=== PATIENT | male | born 1980 | race Caucasian/White ===

== ENCOUNTER → 2020-03-29 16:24 | Outpatient (CLI) | payer BC, SELFPAY ==
[2020-03-29 18:23] LABS: Coronavirus 19 IgG Antibody Negative (Negative); Coronavirus 19 IgM Antibody Negative (Negative)
[2020-03-31 08:56] LABS: Covid-19 Nasal PCR Sendout Lex NOT DETECTED
== END ==
PROVIDERS: PCP Nurse Practitioner Family; Visit Provider Nurse Practitioner Family
DX: Z20.828 Contact with and (suspected) exposure to other viral communicable diseases (principal)
CPT/HCPCS: 36415; 86328; U0004

== ENCOUNTER 2020-06-24 17:15 | Emergency (ER) | payer BC, SELFPAY ==
[2020-06-24 18:01] VITALS: BP 118/82; PULSE 81; RESP 19; TEMP 36.9; O2SAT 100; BMI 34.8
--- NOTE | 2020-06-24 18:11 | HMH.EDUTC ---
[facility] [place]ression: Viral illness Diarrhea Qualifiers: Diarrhea type: unspecified type Qualified Code(s): R19.7 - Diarrhea, unspecified Disposition: Home, Self-Care Condition on Discharge: Good Instructions: Preventing the Spread of Coronavirus Discharge Instructions, Diarrhea Additional Instructions: Monitor temperature. Seek treatment if fever develops. Follow-up immediately if new or worse symptoms worsen or no noticeable improvement over 48 hours. Increase fluids such as water, Gatorade, Powerade, juice or Pedialyte with limited formula/dietary in children No food is okay as long as you are drinking. Once ready to eat start bland such as bananas, rice, applesauce, toast. Contagious until no diarrhea, vomiting, fever times 48 hours without medication Avoid antidiarrheals unless told otherwise. Best to let the virus run its course. Follow-up immediately for new or worsening symptoms or no noticeable improvement over the next 48 hours. covid test done call in 4-5 hours for test results, self isolate until test results are neg Referrals: Mariam Espitia APRN [Primary Care Provider] - Time of Disposition: 18:21 Medical Decision Making - Jones Inquiry Pt receiving controlled substance: No Vital Signs: 06/24/20 18:01 Temperature 98.4 F Temperature Source Oral Pulse Rate [Right Brachial] 81 Respiratory Rate 19 Blood Pressure [Right Arm] 118/82 Blood Pressure Mean [Right Arm] 94 Blood Pressure Source [Right Arm] Automatic Cuff Blood Pressure Position [Right Arm] Sitting 02 Sat by Pulse Oximetry 100 Oxygen Delivery Method Room Air [facility] [place] - General Chief complaint: [facility] Stated complaint: headache sore throat diarrhea Time Seen by Provider: 06/24/20 18:12 Mode of Arrival: Ambulatory Source of Information: Patient Limitations: No Limitations Description of Symptoms (Recalled from Triage Doc. by RN): PATIENT C/O SORE THROAT AND DIARRHEA SINCE YESTERDAY HEENT Symptoms (Recalled from RN notes): No Resp Symptoms (Recalled from RN notes): No Skin Symptoms (Recalled from RN notes): No MS Symptoms (Recalled from RN notes): No Functional Status (Recalled from RN notes): WNL - History of Present Illness Provider Complaint: 39 yr old male presents for diarrhea, sore throat, headache and abd cramping for 2 days. 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 denies fever - Related Data Allergies Allergy/AdvReac Type Severity Reaction Status Date / Time No Known Allergies Allergy Verified 06/24/20 18:05 - Worker's Comp Is this a Worker's Comp case?: No [facility] History - Hepatitis A Screen Drug use history?: No High risk sexual behaviors?: No History of sexually transmitted infection?: No Currently employed?: No Childcare worker?: No Do you have indoor plumbing?: Yes Do you have electricity?: Yes Attestation statement:: This patient has been screened for Hepatitis A risk factors. I have reviewed the patient's past medical history: Yes - Social History Alcohol Intake: never Occupational Status: other ROS Obtained: Yes Systems reviewed as appropriate & no additional complaints - Constitutional Constitutional: Reports system reviewed and no additional complaints, except as docu, Denies fever(s) - Eyes Eyes: Reports system reviewed and no additional complaints, except as docu, Denies blurry vision - ENT Ears, Nose, Mouth, and Throat: Reports system reviewed and no additional complaints, except as docu, Denies otalgia, Denies nasal congestion, Reports sore throat - Cardiovascular Cardiovascular: Reports system reviewed and no additional complaints, except as docu, Denies chest pain - Respiratory Respiratory: Yes system reviewed and no additional complaints, except as docu, Yes cough - Gastrointestinal Gastrointestingal: Reports: system reviewed and no additional complaints, except as docu, diarrhea - Genitourinary Male Genitourinary: Reports system re
[2020-06-24 18:18] LABS: UTC Strep Screen (Rapid) Negative (Negative)
[2020-06-24 18:25] VITALS: BP 118/82; PULSE 81; RESP 19; TEMP 36.9; O2SAT 100
== END 2020-06-24 18:30 | disposition home or self-care (01) ==
PROVIDERS: Emergency Provider Nurse Practitioner Family; PCP Nurse Practitioner Family
DX: Z20.828 Contact with and (suspected) exposure to other viral communicable diseases (principal); B34.9 Viral infection, unspecified; J02.9 Acute pharyngitis, unspecified
CPT/HCPCS: 87880; 99202; U0003

== ENCOUNTER 2020-10-12 16:42 | Emergency (ER) | payer BC, SELFPAY ==
[2020-10-12 17:10] VITALS: BP 131/84; PULSE 77; RESP 18; TEMP 36.9; O2SAT 98; BMI 34.8
--- NOTE | 2020-10-12 17:23 | HMH.EDUTC ---
[facility] [place] Clinical Impression: Viral illness, Encounter for laboratory testing for COVID-19 virus Disposition: Home, Self-Care Condition on Discharge: Good Instructions: Sore Throat, DI for Cough -- Adult, DI for COVID-19 (Suspected or Confirmed ), Coronavirus Disease 2019, Preventing the Spread of Coronavirus Discharge Instructions Additional Instructions: *Monitor Temp, Over the counter Motrin or Tylenol as directed/as needed Tylenol every 4 hours and Motrin every 6 hours (as long as your family doctor has told you that you can take it) for fever or pain. and straight to ER if unable to lower temp less than 101.0 after medication given *Warm salt water gargles may help to soothe the throat *Throat Lozenges *Warm fluids like tea with honey may help to soothe the throat *Sleep elevated *Humidifier/Vaporizer Follow up IMMEDIATELY for new or worsening symptoms or no Noticeable improvement over the next 48-72 hours. 911 for difficulty breathing or swallowing You were tested for today for COVID19 your test result should be back in the next 24-48 hours, you may call to the [facility] to see if your test results are back in the next 48 hours [phone] [facility] hours are 9am-9pm You was given a handout with instructions for Self Quarantine and Self isolation for while you wait on test results and what to do if they are positive If you are positive the Health Dept will be contacting you also Referrals: Mariam Espitia APRN [Primary Care Provider] - As needed Forms: Work/School Release Time of Disposition: 17:39 Medical Decision Making - Jones Inquiry Pt receiving controlled substance: No Jones was queried for this patient: No Vital Signs: 10/12/20 17:10 Temperature 98.4 F Temperature Source Oral Pulse Rate [Right] 77 Respiratory Rate 18 Blood Pressure [Right Arm] 131/84 Blood Pressure Mean [Right Arm] 99 Blood Pressure Source [Right Arm] Automatic Cuff Blood Pressure Position [Right Arm] Sitting 02 Sat by Pulse Oximetry 98 Oxygen Delivery Method Room Air - Lab Data Lab results reviewed: Yes: I reviewed the patient's lab results. Lab Results 10/12/20 17:24: Strep Scn Rapid Clinic Negative Orders (Tests/Meds): ORDERS Category Date Time Status Covid-19 Nasal PCR ([facility]) Routine Lab 10/12/20 17:58 Received Strep Screen Confirmation Stat Micro 10/12/20 17:24 Received [facility] UTC HPI - General Stated complaint: covid test Time Seen by Provider: 10/12/20 17:23 Mode of Arrival: Ambulatory Source of Information: Patient Limitations: No Limitations Description of Symptoms (Recalled from Triage Doc. by RN): pt was indirectly exposed to covid two weeks ago. pt is not complaining of loss of taste and sore throat that started today. HEENT Symptoms (Recalled from RN notes): Yes (sore throat) Resp Symptoms (Recalled from RN notes): No Skin Symptoms (Recalled from RN notes): No MS Symptoms (Recalled from RN notes): No Functional Status (Recalled from RN notes): na - History of Present Illness Provider Complaint: Patient state that he was around someone that had been in contact with someone that was positive for COVID States that for the last couple of days he has been having runny nose and sore throat and now has loss his sense of taste and smell States that he is not sure if he has been directly exposed to COVID but wanted to get tested - Related Data Allergies Allergy/AdvReac Type Severity Reaction Status Date / Time No Known Allergies Allergy Verified 06/24/20 18:05 - Worker's Comp Is this a Worker's Comp case?: No [facility] History - Hepatitis A Screen Drug use history?: No High risk sexual behaviors?: No History of sexually transmitted infection?: No Currently employed?: No Childcare worker?: No Do you have indoor plumbing?: Yes Do you have electricity?: Yes Attestation statement:: This patient has been screened for Hepatitis A risk factors. I have reviewed the patient's past medical history
[2020-10-12 17:37] LABS: UTC Strep Screen (Rapid) Negative (Negative)
[2020-10-12 17:46] VITALS: BP 119/74; PULSE 65; RESP 16; TEMP 36.9
== END 2020-10-12 17:48 | disposition home or self-care (01) ==
PROVIDERS: Emergency Provider Nurse Practitioner; PCP Nurse Practitioner Family
DX: Z20.822 Contact with and (suspected) exposure to COVID-19 (principal); B34.9 Viral infection, unspecified
CPT/HCPCS: 87880; 99202; G0463; U0003

== ENCOUNTER 2022-03-01 12:05 | Emergency (ER) | payer BC, SELFPAY ==
[2022-03-01 12:23] VITALS: BP 111/81; PULSE 91; RESP 18; TEMP 36.8; O2SAT 96; BMI 36.6
--- NOTE | 2022-03-01 12:28 | HMH.EDUTC ---
[facility] [place] Disposition Clinical Impression: Allergic reaction Qualifiers: Encounter type: initial encounter Qualified Code(s): T78.40XA - Allergy, unspecified, initial encounter Contact dermatitis Qualifiers: Contact dermatitis type: allergic Contact dermatitis trigger: non-food plants Qualified Code(s): L23.7 - Allergic contact dermatitis due to plants, except food Disposition: Home, Self-Care Condition on Discharge: Good Instructions: Contact Dermatitis, DI for General Allergic Reactions, Methylprednisolone Injection Additional Instructions: Try to identify and avoid contact with the offending substance. Don't start the oral steroids until tomorrow. Follow up with your regular doctor. GO TO THE ER FOR ANY WORSENING SYMPTOMS OR CONCERNS Continue your regular allergy meds as you are taking them. Prescriptions: methylPREDNISolone [Medrol] 4 mg PO DIRECTED 6 Days #21 packet Transmission Status: Received by [id number] Referrals: Lisa Jaeger PA [Primary Care Provider] - Time of Disposition: 12:32 Medical Decision Making - Medical Records Medical records reviewed: No: I reviewed the patient's medical records. - Jones Inquiry Pt receiving controlled substance: No Vital Signs: 03/01/22 12:23 03/01/22 12:42 Temperature 98.2 F 98.2 F Temperature Source Oral Pulse Rate 91 H Pulse Rate [Left] 91 H Respiratory Rate 18 18 Blood Pressure 111/81 Blood Pressure [Right Arm] 111/81 Blood Pressure Mean [Right Arm] 91 02 Sat by Pulse Oximetry 96 [facility] [place] HPI - General Stated complaint: eye swelling Time Seen by Provider: 03/01/22 12:28 Description of Symptoms (Recalled from Triage Doc. by RN): patient comes in for allergic reaction to something in the yard. he was working in the yard and his eyes are red and swollen HEENT Symptoms (Recalled from RN notes): Yes Resp Symptoms (Recalled from RN notes): No Skin Symptoms (Recalled from RN notes): No MS Symptoms (Recalled from RN notes): No Functional Status (Recalled from RN notes): wnl - History of Present Illness Provider Complaint: He states that after he mowed his grass 3 days ago he began to have a itchy rash on his face. Since then he has had swelling of his face and around his eyes. He denies any mouth or throat swelling. He denies any chest pain or shortness of breath. He has had a similar reaction like this in the past after mowing his grass. He takes multiple allergy prescriptions and he takes allergy shots due to his environmental allergies. - Related Data Home Medications Medication Instructions Recorded Confirmed buspirone 5 mg tablet 5 mg PO BID 02/11/22 02/11/22 diphenhydramine HCl 25 mg capsule 25 mg PO BID cap 02/11/22 02/11/22 esomeprazole magnesium 20 mg 20 mg PO DAILY 02/11/22 02/11/22 capsule,delayed release fluticasone propionate 50 2 spray NS DAILY 02/11/22 02/11/22 mcg/actuation nasal spray,suspension levocetirizine 5 mg tablet 5 mg PO DAILY 02/11/22 02/11/22 montelukast 10 mg tablet 10 mg PO DAILY 02/11/22 02/11/22 multivitamin 1 tab PO DAILY 02/11/22 02/11/22 sumatriptan succinate 100 mg tablet 100 mg PO ONCE PRN tab 02/11/22 02/11/22 topiramate 25 mg tablet 25 mg PO DAILY 02/11/22 02/11/22 Previous Rx's Medication Instructions Recorded escitalopram oxalate 10 mg tablet 10 mg PO DAILY #90 tab 02/11/22 methylPREDNISolone [Medrol] 4 mg PO DIRECTED 6 Days #21 03/01/22 packet Allergies Allergy/AdvReac Type Severity Reaction Status Date / Time No Known Allergies Allergy Verified 03/01/22 12:25 - Worker's Comp Is this a Worker's Comp case?: No [facility] History - Hepatitis A Screen Attestation statement:: This patient has been screened for Hepatitis A risk factors. I have reviewed the patient's past medical history: Yes Medical History: Reports:: Anxiety Other Medical History: Reports: Other (migraines; ESVIN) Other Surgeries: Yes: Bariatric Surgery (gastric sleeve),
[2022-03-01 12:42] VITALS: BP 111/81; PULSE 91; RESP 18; TEMP 36.8
== END 2022-03-01 12:44 | disposition home or self-care (01) ==
PROVIDERS: Emergency Provider Nurse Practitioner Family; PCP Physician Assistant
DX: L23.7 Allergic contact dermatitis due to plants, except food
CPT/HCPCS: 99212; G0463

== ENCOUNTER 2023-09-06 10:23 | Emergency (ER) | payer BC, SELFPAY ==
[2023-09-06 11:05] VITALS: BP 146/85; PULSE 82; RESP 20; TEMP 37.1; O2SAT 98; BMI 37.3
--- NOTE | 2023-09-06 11:19 | EXP.UTC ---
Discharge Plan Disposition Patient Disposition: Home, Self-Care Condition: Good Prescriptions Prescriptions: New penicillin V potassium 500 mg tablet 500 mg PO BID Qty: 20 0RF methylprednisolone [Medrol (Brennan)] 4 mg tablets,dose pack See Rx Instructions .Route .COMPLEX 6 Days Qty: 21 0RF Rx Instructions: taper pack; No Action buspirone 5 mg tablet 5 mg PO DAILY montelukast 10 mg tablet 10 mg PO DAILY Patient Comments: TAKE 1 TABLET BY MOUTH EVERY DAY escitalopram oxalate [Lexapro] 10 mg Tablet 10 mg PO DAILY levocetirizine [Xyzal] 5 mg Tablet 5 mg PO DAILY levocetirizine 5 mg tablet 5 mg PO DAILY Patient Comments: TAKE 1 TABLET BY MOUTH EVERY DAY Referrals Follow up/Referrals: Markie Dietrich MD [Primary Care Provider] - See instructions Activity Restrictions/Add. Instructions Additional Instructions/Restrictions: *Monitor Temp, Over the counter Motrin or Tylenol as directed/as needed Tylenol every 4 hours and Motrin every 6 hours (as long as your family doctor has told you that you can take it) for fever or pain. and straight to ER if unable to lower temp less than 101.0 after medication given *Warm salt water gargles may help to soothe the throat *Throat Lozenges? *Warm fluids like tea with honey may help to soothe the throat? *Sleep elevated *Humidifier/Vaporizer *If you did not take Penicillin shot or was unable to, start taking antibiotic immediately and make sure that you take it for the FULL length of time although you should start to feel better in 24-48 hours *change toothbrush and toothpaste 24-48 hours after starting to take antibiotics so you do not reinfect yourself Monitor Temp. Tylenol and/or Ibuprofen as needed. ER if fever is no less than 101 despite alternating Tylenol and Ibuprofen * Encourage fluids, water, Gatorade, powerade, pedialyte if /toddler/or child *Cold fluids, popsicles and ice cream may feel good on his throat Follow up IMMEDIATELY for new or worsening symptoms or no Noticeable improvement over the next 48-72 hours. 911 for difficulty breathing or swallowing Clinical Impressions Clinical Impression: Strep throat Stand Alone Forms Stand Alone Forms: Work/School Release Instructions Patient Instructions: DI for Strep Throat, Strep Throat Discharge ED Provider: Dalila Garcia [facility] General Stated complaint: sore throat, cough Mode of Arrival: Ambulatory Source of Information: Patient Limitations: No Limitations Time Seen by Provider: 09/06/23 11:19 Description of Symptoms (Recalled from Triage Doc. 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 Related Data Home Medications Medication Instructions Recorded Confirmed buspirone 5 mg tablet 5 mg PO DAILY 09/06/23 09/06/23 escitalopram oxalate 10 mg tablet 10 mg PO DAILY 09/06/23 09/06/23 (Lexapro) levocetirizine 5 mg tablet 5 mg PO DAILY 09/06/23 09/06/23 levocetirizine 5 mg tablet (Xyzal) 5 mg PO DAILY 09/06/23 09/06/23 montelukast 10 mg tablet 10 mg PO DAILY 09/06/23 09/06/23 Previous Rx's Medication Instructions Recorded methylprednisolone 4 mg tablets in See Rx Instructions .Route 09/06/23 a dose pack (Medrol (Brennan)) .COMPLEX 6 days #21 tabs penicillin V potassium 500 mg 500 mg PO BID #20 tabs 09/06/23 tablet Allergies Allergy/AdvReac Type Severity Reaction Status Date / Time shellfish Allergy throat Uncoded 05/29/23 10:02 swelling Worker's Comp Is this a Worker's Comp case?: No [facility] Disclaimer: The information contained in this section may have been updated after the patient was seen, as this information can be updated by other users. Medical History Allergic reaction Allergic rhinitis Anxiety and depression Contact dermatitis Diarrhea Encounter for laboratory testing for COVID-19 virus Gastroesophageal reflux disease Migraine headache Viral illness Surgical History H/O removal of cyst H/O sinus surgery Family History Grandmother Coronary artery disease Grandfather Coronary artery disease Father Coronary artery disease Social History Smoking Status: Never smoker alcohol intake: never current occupational status: employed Travel in the last 8 weeks: None ROS Obtained: Yes All systems reviewed & no additional complaints except as documented and Yes Systems reviewed as appropriate & no additional complaints except as documented Constitutional Constitutional: Reports system reviewed and no additional complaints, except as documented, Reports as per HPI, Reports fever(s) and Reports headache(s) ENT Ears, Nose, Mouth, and Throat: Reports system reviewed and no additional complaints, except as documented, Reports as per HPI, Reports headache(s), Reports nasal congestion and Reports sore throat Cardiovascular Cardiovascular: Reports system reviewed and no additional complaints, except as documented and Reports as per HPI Respiratory Respiratory: Reports system reviewed and no additional complaints, except as documented and Reports as per HPI Gastrointestinal Gastrointestingal: Reports system reviewed and no additional complaints, except as documented and as per HPI Neurologic Neurologic: Reports headache(s) Physical Exam General General appearance: alert and in no apparent distress ENT ENT exam: Present mucous membranes moist Expanded ENT Exam Throat exam: Present tonsillar erythema and tonsillar exudate Respiratory Respiratory exam: Present normal lung sounds bilaterally; Absent respiratory distress or wheezes Cardiovascular Cardiovascular exam: Present regular rate, normal rhythm and normal heart sounds Abdominal Exam Abdominal exam: Present soft and normal bowel sounds; Absent distention or tenderness Neurological Exam Neurological exam: Present alert, oriented X3 and normal gait Medical Decision Making Jones Inquiry Pt receiving controlled substance: No Jones was queried for this patient: No Vital Signs: 09/06/23 11:05 Temperature 98.8 F Temperature Source Oral Pulse Rate [Left Brachial] 82 Respiratory Rate 20 Blood Pressure [Left Arm] 146/85 H Blood Pressure Mean [Left Arm] 105 Blood Pressure Source [Left Arm] Automatic Cuff Blood Pressure Position [Left Arm] Sitting 02 Sat by Pulse Oximetry 98 Oxygen Delivery Method Room Air Lab Data Lab results reviewed: Yes I reviewed the patient's lab results.
[2023-09-06 11:23] LABS: UTC Strep Screen (Rapid) Positive (Negative)
[2023-09-06 11:28] VITALS: BP 146/85; PULSE 82; RESP 20; TEMP 37.1; O2SAT 98
== END 2023-09-06 11:30 | disposition home or self-care (01) ==
PROVIDERS: Emergency Provider Nurse Practitioner; PCP Family Medicine
DX: J02.0 Streptococcal pharyngitis (principal); R07.0 Pain in throat; R50.9 Fever, unspecified; R51.9 Headache, unspecified; R09.81 Nasal congestion; R05.9 Cough, unspecified; K21.9 Gastro-esophageal reflux disease without esophagitis; J30.9 Allergic rhinitis, unspecified
CPT/HCPCS: 87880; 99212; 99214; G0463

== ENCOUNTER 2023-11-26 12:04 | Outpatient (CLI) | payer BC, SELFPAY ==
--- NOTE | 2023-11-26 12:09 | XR_ITS ---
FINAL REPORT CLINICAL HISTORY: right foot pain COMPARISON: None FINDINGS: RIGHT FOOT 3 views of the right foot were obtained. There is no acute fracture or dislocation. Visualized joint spaces are normally aligned. Soft tissues are unremarkable. IMPRESSION: No acute bony abnormality. Reviewed, Interpreted and Dictated by Raoul Mancini MD Transcribed by Bessy Pierre Authenticated and [facility]
== END 2023-11-26 23:59 ==
LOC: RAD 12:05
PROVIDERS: PCP Nurse Practitioner Family; Visit Provider Nurse Practitioner Family
DX: M79.671 Pain in right foot (principal)
CPT/HCPCS: 73630

== ENCOUNTER 2024-04-05 08:00 | Outpatient (RCR) | payer BC, SELFPAY | END 2024-04-27 09:00 | disposition home or self-care (01) | LOC: PT 08:00 | PROVIDERS: Visit Provider Orthopaedic Surgery | DX: M51.27 Other intervertebral disc displacement, lumbosacral region (principal) | CPT/HCPCS: 97010; 97012; 97014; 97110; 97140; 97163; G0283 ==

== ENCOUNTER 2024-06-09 21:27 | Emergency (ER) | payer SELFPAY ==
[2024-06-09 21:29] VITALS: BP 139/103; PULSE 79; RESP 20; TEMP 36.6; O2SAT 98; BMI 38.0
--- NOTE | 2024-06-09 22:01 | HMH.EDGENADL ---
Discharge Plan Disposition Patient Disposition: Home, Self-Care Prescriptions Prescriptions: No Action methylprednisolone [Medrol (Brennan)] 4 mg tablets,dose pack See Rx Instructions PO PER PKG DIR Qty: 21 0RF Rx Instructions: PO PER PKG DIR promethazine 25 mg tablet 25 mg PO Q6H PRN (Reason: nausea and vomiting) Qty: 10 1RF tizanidine [Zanaflex] 4 mg capsule 4 mg PO Q8H PRN (Reason: muscle spasticity) Qty: 20 1RF diphenhydramine HCl [Benadryl] 25 mg capsule 25 mg PO BID PRN (Reason: allergies) topiramate [Topamax] 25 mg tablet 25 mg PO DAILY esomeprazole magnesium [Nexium] 20 mg capsule,delayed release(DR/EC) 20 mg PO DAILY escitalopram oxalate [Lexapro] 10 mg tablet 10 mg PO DAILY 90 Days Qty: 90 0RF buspirone 5 mg tablet See Rx Instructions .ROUTE .COMPLEX Qty: 180 3RF Dose Instruction: TAKE 1 TABLET BY MOUTH TWICE A DAY Rx Instructions: TAKE 1 TABLET BY MOUTH TWICE A DAY montelukast 10 mg tablet 10 mg PO DAILY 90 Days Qty: 90 0RF Patient Comments: TAKE 1 TABLET BY MOUTH EVERY DAY levocetirizine 5 mg tablet See Rx Instructions .ROUTE .COMPLEX Qty: 90 3RF Dose Instruction: TAKE 1 TABLET BY MOUTH EVERY DAY Rx Instructions: TAKE 1 TABLET BY MOUTH EVERY DAY Referrals Follow up/Referrals: Shae Aguillon APRN [Primary Care Provider] - See instructions Activity Restrictions/Add. Instructions Additional Instructions/Restrictions: The sutures will need to be removed in 10 to 14 days. This can be done at your primary care office, urgent treatment center or here in the emergency department. Keep the wound clean by using gentle soap and water. Do not scrub as this can remove the sutures. If you see evidence of infection, such as pus draining from the wound, increased redness or swelling, fever, or if you become concerned for your health for any reason, return to the emergency department for evaluation. Use the bacitracin ointment on the finger 3-4 times a day. Clinical Impressions Clinical Impression: Laceration of finger Instructions Patient Instructions: DI for Laceration Repair Print Language Print Language: Bel[place]an Discharge ED Provider: Vito Goddard Adult [facility] General Chief complaint: Wound/Laceration Stated complaint: AO 06/09/24 1330 laceration right index finger Time Seen by Provider: 06/09/24 22:01 History of Present Illness HPI narrative: Tristin Gomez is a 43y male who presents to the emergency department for complaints of a laceration to the distal phalanx of the right second digit. Patient states that at approximately 130 this afternoon, he was using a drill at school screaming and a badge reader when the drill slipped, causing a laceration to his right finger. Patient states that he wrapped an electrical tape and did not think much of it until he got home. He notes that laceration is pretty extensive and is continuing to bleed, so he came to the emergency department thinking he may need stitches. He does not know when his last tetanus shot was Related Data Home Medications ?Medication ?Instructions ?Recorded ?Confirmed diphenhydramine HCl 25 mg capsule 25 mg PO BID PRN allergies 10/12/23 01/15/24 (Benadryl) esomeprazole magnesium 20 mg 20 mg PO DAILY 10/12/23 01/15/24 capsule,delayed release (Nexium) topiramate 25 mg tablet (Topamax) 25 mg PO DAILY 10/12/23 01/15/24 Previous Rx's ?Medication ?Instructions ?Recorded escitalopram oxalate 10 mg tablet 10 mg PO DAILY 90 days #90 tabs 10/12/23 (Lexapro) methylprednisolone 4 mg tablets in See Rx Instructions PO PER PKG DIR 01/15/24 a dose pack (Medrol (Brennan)) #21 tabs promethazine 25 mg tablet 25 mg PO Q6H PRN nausea and 01/15/24 vomiting #10 tabs tizanidine 4 mg capsule (Zanaflex) 4 mg PO Q8H PRN muscle spasticity 01/15/24 #20 caps buspirone 5 mg tablet See Rx Instructions .Route 03/07/24 .COMPLEX #180 tabs montelukast 10 mg tablet 10 mg PO DAILY 90 days #90 tabs 04/14/24 levocetirizine 5 mg tablet See Rx Instructions .Route 05/23/24 .COMPLEX #90 tabs Allergies Allergy/AdvReac Type Severity Reaction Status Date / Time shellfish Allergy throat Uncoded 01/15/24 11:30 swelling [facility] Disclaimer: The information contained in this section may have been updated after the patient was seen, as this information can be updated by other users. Medical History Contact dermatitis Allergic reaction Migraine headache Gastroesophageal reflux disease Allergic rhinitis Anxiety and depression Encounter for laboratory testing for COVID-19 virus Diarrhea Viral illness Surgical History H/O removal of cyst H/O sinus surgery Family History Grandmother Coronary artery disease Grandfather Coronary artery disease Father Coronary artery disease Social History Smoking Status: Never smoker alcohol intake: never current occupational status: employed Travel in the last 8 weeks: None Other Medical History Have you received the Pneumonia Vaccine: No ROS Obtained: Yes Systems reviewed as appropriate & no additional complaints except as documented Physical Exam General General appearance: alert, in no apparent distress and anxious Head Head exam: atraumatic Eye Eye exam: Present normal appearance ENT ENT exam: Present normal external ear exam Neck Neck exam: Present full ROM Chest Chest inspection: Present symmetric chest wall rise Respiratory Respiratory exam: Present normal lung sounds bilaterally; Absent respiratory distress Cardiovascular Cardiovascular exam: Present regular rate and normal rhythm Abdominal Exam Abdominal exam: Present soft; Absent tenderness or guarding exam: Present deferred Extremities Exam Extremities exam: Present normal inspection and other (2.5 cm laceration over the lateral aspect of the distal phalange of the right second digit. This does not involve the nail or the nail bed. Mild venous oozing. Sensation and motor function intact. Good capillary refill.) Back Exam Back exam: Present normal inspection Neurological Exam Neurological exam: Present alert and oriented X3 Psychiatric Psychiatric exam: Present normal affect Skin Skin exam: Present warm and dry Medical Decision Making Medical Records Medical records reviewed: Yes I reviewed the patient's medical records. Screening: Per USPSTF and CDC recommendations, given the prevalence of disease in our region, it is our hospital?s policy to screen for HIV and viral Hepatitis for all patients aged 18 and over and those with ongoing risk factors. Jones Inquiry Pt receiving controlled substance: No Vital Signs: 06/09/24 21:29 06/09/24 22:57 Temperature 97.9 F 98.0 F Temperature Source Oral Pulse Rate 70 Pulse Rate [Right Radial] 79 Respiratory Rate 20 18 Blood Pressure 140/70 Blood Pressure [Right Arm] 139/103 H Blood Pressure Mean [Right Arm] 115 02 Sat by Pulse Oximetry 98 Oxygen Delivery Method Room Air Orders (Tests/Meds): ED MEDICATIONS Discontinued Medications Generic Name Dose Route Start Last Admin Trade Name Leandroq PRN Reason Stop Dose Admin Bacitracin 1 gm 06/09/24 22:53 06/09/24 22:58 Bacitracin Zinc Oint 30gm Tube TP 06/09/24 22:54 1 gm ONCE ONE Administration Bacitracin/Polymyxin B Sulfate 0 gm 06/09/24 23:00 Bacitracin-Polymyxin B Oint 30gm Tube TP 06/09/24 23:01 ONCE ONE Lidocaine HCl 20 ml 06/09/24 22:06 06/09/24 22:35 Lidocaine 1% 20ml Mdv IJ 06/09/24 22:07 20 ml ONCE ONE Administration Lorazepam 0.5 mg 06/09/24 22:27 06/09/24 22:29 Lorazepam 0.5mg Tablet PO 06/09/24 22:28 0.5 mg ONCE ONE Administration Tetanus/Reduced Diphtheria/Acell Pertussis 0.5 ml 06/09/24 22:26 06/09/24 22:34 Tet/Diphth/Pert-Adult 0.5ml Syringe IM 06/09/24 22:27 0.5 ml .ONCE ONE Administration Medical Decision Narrative: Tristin Gomez is a 43-year-old male with no significant past medical history presenting to the emergency department for complaints of a laceration to his right second digit. Patient states that at 130 this afternoon, he cut his finger using a drill on object at school. He wrapped it and tape initially but noticed continued bleeding and a fairly large cut when he got home. He does not know when his last tetanus shot was. He is complaining of pain to the distal end of his finger but has no other complaints or concerns at this time. There is a 2.5 cm laceration involving the lateral aspect of the distal phalange of the right second digit. Sensation motor function grossly intact with good capillary refill. No evidence of arterial bleeding at this time. Differential diagnosis includes: Laceration, soft tissue injury, low concern for tendon or bony injury at this time. Considerations were made to obtaining x-ray imaging as well as lab work, however is felt that these would not change ED management at this time based on the patient's physical exam, reassuring vital signs and overall well appearance. Patient reported significant anxiety regarding the need to have the wound repaired with sutures. He was given 0.5 mg of p.o. Ativan, which she states helped his anxiety. A digital nerve block was performed using 1% lidocaine to the right second digit. The area was cleaned using soap and sterile water and irrigated thoroughly. The patient's laceration was then repaired using 5-0 nylon suture x 6 in a simple interrupted fashion. He tolerated this procedure well with good wound closure. He was provided bacitracin ointment here in the emergency department to take home with him. He was instructed to have the sutures removed in 10 to 14 days. Return precautions were given for any evidence of developing infection. All questions were answered. He was then discharged from the emergency department in stable condition. Procedures Laceration Laceration 1: Site: finger Side (If applicable): right Size (cm): 2.5 Description: linear and clean Depth: simple, single layer Local Anesthetic: lidocaine 1% Amount of anesthesia used (mL): 6 Skin layer closed with: nylon Size (cm): 5-0 Number of sutures: 6 Technique: simple, interrupted Critical Care Critical Care Time Critical Care Time: No
[2024-06-09] MEDS: LORazepam 0.5MG TABLET 0.5 MG PO (22:29)
[2024-06-09] MEDS: TET/DIPHTH/PERT-ADULT 0.5ML SYRINGE 0.5 ML IM (22:34)
[2024-06-09] MEDS: LIDOCAINE 1% 20ML MDV 20 ML IJ (22:35)
[2024-06-09 22:57] VITALS: BP 140/70; PULSE 70; RESP 18; TEMP 36.7; O2SAT 98
[2024-06-09] MEDS: BACITRACIN ZINC OINT 30GM TUBE TP (22:58)
== END 2024-06-09 23:02 | disposition home or self-care (01) ==
PROVIDERS: Emergency Provider Student in an Organized Health Care Education/Training Program; PCP Nurse Practitioner Family
DX: S61.219A Laceration without foreign body of unspecified finger without damage to nail, initial encounter (principal); Z23 Encounter for immunization; W26.0XXA Contact with knife, initial encounter; Y93.9 Activity, unspecified; Y92.219 Unspecified school as the place of occurrence of the external cause
CPT/HCPCS: 12001; 90471; 90715; 99283

== ENCOUNTER 2024-12-02 12:04 | Outpatient (CLI) | payer BC, SELFPAY ==
--- NOTE | 2024-12-02 12:38 | ECG_ITS ---
APPROVED REPORT Exam: Resting ECG HR:76 bpm ECG Measurements Heart Rate 76 AXES ID 154 P 52 QRSd 102 QRS -5 QT 404 T 22 QTc 434 Conclusion SINUS RHYTHM VOLTAGE CRITERIA FOR LVH [MEETS CRITERIA IN ONE OF: R(aVL), S(V1), R(V5), R(V5/V6)+S(V1)] ABNORMAL ECG INTERPRETATION BASED ON A DEFAULT AGE OF 40 YEARS UNCONFIRMED REPORT Electronically signed by : Rohan Man MD 12/03/2024 09:55:28
[2024-12-02 14:35] LABS: Blood Urea Nitrogen 17 mg/dl (9-20); Calcium 9.3 mg/dl (8.4-10.2); Carbon Dioxide 31 mmol/L (22.0-30.0); Chloride 104 mmol/L (98-107); Estimated Glomerular Filt Rate 91 ml/min (>60); GFR (African American) 110 ML/MIN (>60); Glucose 85 mg/dl (74-100); Potassium 3.9 mmoL/L (3.5-5.1)
[2024-12-02 14:37] LABS: Anion Gap 9.9 mEq/L (5-15); Sodium 141 mmol/L (136-145)
[2024-12-02 14:45] LABS: Basophils # 0.1 K/mm3 (0-0.2); Basophils % 1.1 % (0.1-2.0); Eosinophils # 0.1 K/mm3 (0.0-0.4); Hematocrit 42.8 % (42.0-52.0); Hemoglobin 14.4 g/dL (14.1-18.0); Lymphocytes # 1.2 K/mm3 (0.7-4.5); Lymphocytes % 27.8 % (10-50); Mean Corpuscular HGB Conc 33.6 g/dL (31.8-35.4); Mean Corpuscular Hemoglobin 29.3 pg (27.0-31.2); Mean Platelet Volume 12.2 fl (7.4-10.4); Monocytes # 0.4 K/mm3 (0.1-1.0); Monocytes % 8.1 % (1.7-9.3); Neutrophils # 2.7 K/mm3 (1.8-7.8); Neutrophils % 59.9 % (37.0-80.0); Platelet Count 185 K/mm3 (142-424); Red Blood Count 4.92 M/mm3 (4.60-6.20); Red Cell Distribution Width 12.9 % (11.5-17.5); White Blood Count 4.5 K/mm3 (4.8-10.8)
== END 2024-12-02 23:59 | disposition home or self-care (01) ==
LOC: PREOP 12:05
PROVIDERS: PCP Family Medicine; Visit Provider Surgery
DX: Z01.810 Encounter for preprocedural cardiovascular examination (principal); L72.9 Follicular cyst of the skin and subcutaneous tissue, unspecified; R94.31 Abnormal electrocardiogram [ECG] [EKG]
CPT/HCPCS: 80048; 85025; 93005

== ENCOUNTER 2024-12-08 10:28 | Day surgery (SDC) | payer BC, SELFPAY ==
[2024-12-02 12:58] VITALS: BMI 40.6
[2024-12-08] VITALS (9 sets, daily range): BP systolic 85–140; BP diastolic 57–99; PULSE 57–85; RESP 16–18; TEMP 36.2–36.3; O2SAT 91–98
--- NOTE | 2024-12-08 11:17 | P.PNANES_ITS ---
[facility] Disclaimer: The information contained in this section may have been updated after the patient was seen, as this information can be updated by other users. Medical History ESVIN on CPAP Contact dermatitis Allergic reaction Migraine headache Gastroesophageal reflux disease Allergic rhinitis Anxiety and depression Encounter for laboratory testing for COVID-19 virus Diarrhea Viral illness Surgical History History of gastric surgery H/O removal of cyst H/O sinus surgery Family History Grandmother Coronary artery disease Grandfather Coronary artery disease Father Coronary artery disease Other Family history of cancer Social History Smoking Status: Never smoker alcohol intake: never substance use type: denies use current occupational status: employed Travel in the last 8 weeks: Inside the [place] [facility] Anesthesia Checklist Patient Identification Patient Identification: Arm Band Structural Data Admitted From: Home Planned Operative Procedure/s: Excision of Scalp Lesion x2 Consent for Planned Operative Procedure(s) Verified: Yes Verified Documents: Surgical Consent and History and Physical NPO Status Verified Time NPO: 00:00 Additional verifications Anesthesia Reactions: No Hx Blood Transfusions: No Blood Transfusion Reaction: No Airway Assessment Mallampati Score:: Class II C-Spine Mobility Assessed: Yes TMJ Mobility Assessed: Yes Dentition: Good Dentition Neurological Assessment Level of Consciousness: Awake, Alert and Appropriate Anesthesia Plan Anesthesia Risk discussed: Yes Anesthesia Plan: Verified ASA Class: III Anesthesia Type: General
[2024-12-08] MEDS: CEFAZOLIN SODIUM 2 GM in 0.9 % SODIUM CHLORIDE 100 ML IV (11:45)
[2024-12-08] MEDS: LIDOCAINE 1% 20ML MDV 20 ML (12:14)
--- NOTE | 2024-12-08 12:27 | EXP.OP.NOTE ---
Date of procedure: 12/08/24 Pre-op Diagnosis:: Scalp cyst (2 separate 1 cm scalp cysts) Post-op Diagnosis:: Same Procedure performed:: Excision of 1 cm scalp cyst (x 2) Surgeon:: Sandeep Corey MD PLANTING MATERIAL REMOVER:: Mendoza Sr Anesthesia: local and LMA Estimated blood loss (mL): 10 Operative findings:: Inferior/posterior scalp cyst excised in toto Scalp apex cyst excised in toto Dissection for both cystic lesions was taken into the deeper subcutaneous tissue Operative note:: After informed consent was obtained the patient was taken to the operating room and placed in the right lateral decubitus position. General anesthesia with laryngeal mask airway was achieved. His scalp apex and scalp posterior/inferior margin were prepped and draped in a sterile fashion. After infiltration with local anesthetic an elliptical incision was made overlying the inferior/posterior scalp cyst. Electrocautery and sharp dissection were utilized to transect through the deeper subcutaneous tissue around the cyst capsule. The cyst was excised in toto and passed off for pathologic evaluation. Electrocautery was utilized to achieve hemostasis and skin was reapproximated with interrupted 4-0 nylon in a mattress fashion. Attention was then turned to the scalp apex cystic lesion. After infiltration with local anesthetic an elliptical incision was made overlying the lesion. Electrocautery and sharp dissection were utilized to transect through the deeper subcutaneous tissue around the cyst capsule. The cyst was excised in toto and passed off for pathologic evaluation. Electrocautery was utilized to achieve hemostasis and skin was reapproximated with interrupted 4-0 nylon in a combination mattress and simple interrupted fashion. Dressings were applied and the patient was transferred recovery in stable condition. Condition: stable Disposition: PACU Specimens:: Inferior/posterior scalp cyst Scalp apex cyst Complications:: No immediate
--- NOTE | 2024-12-08 12:38 | P.PNANES_ITS ---
[facility] Anesthesia Record Part I Anesthesia Record I Intake, IV Amount: 900 Hydration: Adequate Estimated blood loss (mL): 5 Urine output (mL): 0 Blood Products used (#): none Blood Pressure: 85/57 SaO2: 91 Pulse Rate: 60 Airway Patency: Patent Respiratory Rate: 16 Temperature: 97.1 F Patient is:: Drowsy and Stable Stable to PACU at:: 12:35
[2024-12-08] MEDS: ACETAMINOPHEN 325MG TAB 650 MG (13:30)
[2024-12-09 08:03] VITALS: BP 129/77; PULSE 57; RESP 16; TEMP 36.2; O2SAT 95
--- NOTE | 2024-12-09 08:03 | EXP.ANES.II ---
[facility] Anesthesia Record Part II Anesthesia Record Part II Discharge Time: 13:05 Destination: Surgical Day Care (OP Surgery) PACU nurse assessment reviewed?: Yes Patient Condition:: Good Anesthesia Complications:: None Swallowing reflex intact?: Yes Airway Patency: Patent Cyanosis?: No Blood Pressure: 129/77 SaO2: 95 Respiratory Rate: 16 Pulse Rate: 57 Temperature: 97.1 F Mental Status: Alert & Oriented Pain level:: 0 Nausea and/or vomitting:: None Intake, IV Amount: 0 Hydration: Adequate
== END 2024-12-08 14:12 | disposition home or self-care (01) ==
PROVIDERS: PCP Family Medicine; Visit Provider Surgery
PROC: (CPT 11421; principal; 2024-12-08 12:15)
DX: L72.11 Pilar cyst (principal)
CPT/HCPCS: 11421; 96374; J0690; J1100; J2250; J2405; J3010

== ENCOUNTER 2024-12-16 12:31 | Emergency (ER) | payer BC, SELFPAY ==
--- NOTE | 2024-12-16 12:35 | ED_ITS ---
Discharge Plan Disposition Patient Disposition: Home, Self-Care Condition: Good Prescriptions Prescriptions: No Action tizanidine [Zanaflex] 4 mg capsule 4 mg PO Q8H PRN (Reason: muscle spasticity) Qty: 20 1RF diphenhydramine HCl [Benadryl] 25 mg capsule 25 mg PO BID PRN (Reason: allergies) topiramate [Topamax] 25 mg tablet 25 mg PO DAILY esomeprazole magnesium [Nexium] 20 mg capsule,delayed release(DR/EC) 20 mg PO DAILY buspirone 5 mg tablet See Rx Instructions .ROUTE .COMPLEX Qty: 180 3RF Dose Instruction: TAKE 1 TABLET BY MOUTH TWICE A DAY Rx Instructions: TAKE 1 TABLET BY MOUTH TWICE A DAY levocetirizine 5 mg tablet See Rx Instructions .ROUTE .COMPLEX Qty: 90 3RF Dose Instruction: TAKE 1 TABLET BY MOUTH EVERY DAY Rx Instructions: TAKE 1 TABLET BY MOUTH EVERY DAY montelukast 10 mg tablet 10 mg PO DAILY 90 Days Qty: 90 0RF Patient Comments: TAKE 1 TABLET BY MOUTH EVERY DAY escitalopram oxalate 10 mg tablet 10 mg PO DAILY Patient Comments: TAKE 1 TABLET BY MOUTH EVERY DAY Referrals Follow up/Referrals: Markie Dietrich MD [Primary Care Provider] - See instructions Activity Restrictions/Add. Instructions Additional Instructions/Restrictions: As we discussed keep your wound covered with a clean dry nonocclusive dressing if needed to catch drainage otherwise leave open to air. You may shower normally with soap and water pat dry. If you notice any any increased redness pain or drainage return to the emergency department as needed. Please keep your appointment with Dr. Corey next week. Clinical Impressions Clinical Impression: Visit for wound check Print Language Print Language: German Discharge ED Provider: Jaren Mcwilliams General Adult HPI <ANGELICA Husain - Last Filed: 12/16/24 14:45> General Chief complaint: Recheck/Abnormal Lab/Rx Stated complaint: post op, incisions opened sent by Dr. Corey's offic Time Seen by Provider: 12/16/24 12:35 History of Present Illness HPI narrative: Patient presents for evaluation of a postoperative wound check. Patient had a pilar cyst excision x 2 7 days ago by general surgery. He was seen 2 days ago postop follow-up in all but 1 stitch was removed from each wound. Last night he had some bleeding and drainage from both wounds and this morning they contacted the general surgery clinic who sent him to the ER for evaluation. He denies any fever chills hemoptysis hematochezia melena increasing pain. Related Data Home Medications ?Medication ?Instructions ?Recorded ?Confirmed diphenhydramine HCl 25 mg capsule 25 mg PO BID PRN allergies 10/12/23 12/14/24 (Benadryl) esomeprazole magnesium 20 mg 20 mg PO DAILY 10/12/23 12/14/24 capsule,delayed release (Nexium) topiramate 25 mg tablet (Topamax) 25 mg PO DAILY 10/12/23 12/14/24 escitalopram oxalate 10 mg tablet 10 mg PO DAILY 12/08/24 12/14/24 Previous Rx's ?Medication ?Instructions ?Recorded tizanidine 4 mg capsule (Zanaflex) 4 mg PO Q8H PRN muscle spasticity 01/15/24 #20 caps buspirone 5 mg tablet See Rx Instructions .Route 03/07/24 .COMPLEX #180 tabs levocetirizine 5 mg tablet See Rx Instructions .Route 05/23/24 .COMPLEX #90 tabs montelukast 10 mg tablet 10 mg PO DAILY 90 days #90 tabs 10/07/24 Allergies Allergy/AdvReac Type Severity Reaction Status Date / Time shellfish Allergy Severe throat Uncoded 12/14/24 14:44 swelling [facility] <ANGELICA Husain - Last Filed: 12/16/24 14:45> [facility] Disclaimer: The information contained in this section may have been updated after the jeffy ent was seen, as this information can be updated by other users. Medical History ESVIN on CPAP Contact dermatitis Allergic reaction Migraine headache Gastroesophageal reflux disease Allergic rhinitis Anxiety and depression Encounter for laboratory testing for COVID-19 virus Diarrhea Viral illness Surgical History History of gastric surgery H/O removal of cyst H/O sinus surgery Family History Grandmother Coronary artery disease Grandfather Coronary artery disease Father Coronary artery disease Other Family history of cancer Social History (Reviewed 12/14/24 @ 14:44 by KI Harper Smoking Status: Never smoker alcohol intake: never substance use type: denies use current occupational status: employed Travel in the last 8 weeks: Inside the [place] Have you lived/traveled outside US in past 30 days?: No Contact w/someone who lives/traveled outside US past 30 days?: No Exposure to someone with infectious disease in past 14 days?: No Do you have a fever (greater than 100.4 F or 38 C)?: No Have you tested positive for COVID-19: No Exposed to someone with COVID-19 in past 14 days?: No Do you have a sore throat?: No Do you have a cough?: No Do you have any weakness?: No Do you have any diarrhea?: No Are you experiencing any unusual bleeding?: No Do you have any muscle aches/pain?: No Do you have any abdominal pain?: No Are you experiencing loss of taste or smell?: No Other Medical History Have you received the Pneumonia Vaccine: No <ANGELICA Husain - Last Filed: 12/16/24 14:45> ROS Obtained: Yes Systems reviewed as appropriate & no additional complaints except as documented Physical Exam <ANGELICA Husain - Last Filed: 12/16/24 14:45> General General appearance: alert and in no apparent distress Respiratory Respiratory exam: Present normal lung sounds bilaterally Cardiovascular Cardiovascular exam: Present regular rate Neurological Exam Neurological exam: Present alert and oriented X3 Medical Decision Making <ANGELICA Husain - Last Filed: 12/16/24 14:45> Medical Records Medical records reviewed: Yes I reviewed the patient's medical records. Screening: Per USPSTF and CDC recommendations, given the prevalence of disease in our region, it is our hospital?s policy to screen for HIV and viral Hepatitis for all patients aged 18 and over and those with ongoing risk factors. Jones Inquiry Pt receiving controlled substance: No Vital Signs: 12/16/24 12:43 12/16/24 13:04 12/16/24 13:17 Temperature 98.1 F 98.1 F Temperature Source Oral Oral Pulse Rate 80 Pulse Rate [Right] 85 Respiratory Rate 19 18 Blood Pressure 125/80 Blood Pressure [Right Arm] 130/83 Blood Pressure Mean [Right Arm] 98 Blood Pressure Source Automatic Cuff Blood Pressure Source [Right Arm] Automatic Cuff 02 Sat by Pulse Oximetry 97 98 Oxygen Delivery Method Room Air Room Air Room Air Medical Decision Narrative: In summary patient is a 44-year-old male who presents to the emergency department for evaluation of postoperative wound check. Patient is hemodynamically stable upon arrival, febrile. Physical exam is remarkable for some serosanguineous drainage from both of his operative scalp wounds however there is no dehiscence there is no fluctuance there is no erythema or cellulitis. Differential diagnosis includes early wound dehiscence although I feel its less likely versus normal postoperative drainage. Initial workup was considered with labs and imaging however will defer until contacting the surgeon. I was able to have an interactive discussion with Dr. Desai regarding patient's presentation and evaluation. I sent him pictures and he feels that this is normal postoperative course and as the patient has no red flags for deep space infection recommends no antibiotics, leaving open to air, covering with a dry nonocclusive dressing if it continues to drain strict return precautions. I then had a shared decision-making discussion with the patient and his and informed them of Dr. Desai's assessment with which I agree that there is no evidence of ongoing infection this appears to be minimal drainage with no evidence of cellulitis dehiscence or wound infection. If there is any redness purulent drainage increasing pain fever to return to the emergency department. Patient and his are both comfortable and via patient directed discharge and decision making they will go home with the wound care instructions provided then by Dr. Desai with strict return precautions. <Jaren Mcwilliams MD - Last Filed: 12/21/24 06:58> Vital Signs: 12/16/24 12:43 12/16/24 13:04 12/16/24 13:17 Temperature 98.1 F 98.1 F Temperature Source Oral Oral Pulse Rate 80 Pulse Rate [Right] 85 Respiratory Rate 19 18 Blood Pressure 125/80 Blood Pressure [Right Arm] 130/83 Blood Pressure Mean [Right Arm] 98 Blood Pressure Source Automatic Cuff Blood Pressure Source [Right Arm] Automatic Cuff 02 Sat by Pulse Oximetry 97 98 Oxygen Delivery Method Room Air Room Air Room Air Medical Decision Narrative: In summary patient is a 44-year-old male who presents to the emergency department for evaluation of postoperative wound check. Patient is hemodynamically stable upon arrival, febrile. Physical exam is remarkable for some serosanguineous drainage from both of his operative scalp wounds however there is no dehiscence there is no fluctuance there is no erythema or cellulitis. Differential diagnosis includes early wound dehiscence although I feel its less likely versus normal postoperative drainage. Initial workup was considered with labs and imaging however will defer until contacting the surgeon. I was able to have an interactive discussion with Dr. Desai regarding patient's presentation and evaluation. I sent him pictures and he feels that this is normal postoperative course and as the patient has no red flags for deep space infection recommends no antibiotics, leaving open to air, covering with a dry nonocclusive dressing if it continues to drain strict return precautions. I then had a shared decision-making discussion with the patient and his and informed them of Dr. Desai's assessment with which I agree that there is no evidence of ongoing infection this appears to be minimal drainage with no evidence of cellulitis dehiscence or wound infection. If there is any redness purulent drainage increasing pain fever to return to the emergency department. Patient and his are both comfortable and via patient directed discharge and decision making they will go home with the wound care instructions provided then by Dr. Desai with strict return precautions. I was consulted by the MARLIN, and we discussed the complexity of the problems being addressed. I approved the treatment and management plan for this patient's care in the Emergency Department, thus performing a substantive portion of the medical decision making. Jaren Mcwilliams MD Critical Care <ANGELICA Husain - Last Filed: 12/16/24 14:45> Critical Care Time Critical Care Time: No
[2024-12-16 12:43] VITALS: BP 130/83; PULSE 85; RESP 19; TEMP 36.7; O2SAT 97; BMI 40.6
--- NOTE | 2024-12-16 13:00 | PC.NURSE ---
Juan Francisco DOMINGUEZ s/w Dr Corey in OR
[2024-12-16 13:04] VITALS: O2SAT 98
[2024-12-16 13:17] VITALS: BP 125/80; PULSE 80; RESP 18; TEMP 36.7; O2SAT 98
== END 2024-12-16 13:18 | disposition home or self-care (01) ==
PROVIDERS: Emergency Provider Emergency Medicine; PCP Family Medicine
DX: L72.11 Pilar cyst (principal); Z51.89 Encounter for other specified aftercare
CPT/HCPCS: 99281

== ENCOUNTER 2025-05-02 10:33 | Day surgery (SDC) | payer BC, SELFPAY ==
[2025-05-02 10:56] VITALS: BMI 40.6
[2025-05-02] MEDS: LACTATED RINGERS 1000ML 1,000 ML 50 ML IV (11:00)
[2025-05-02 11:07] VITALS: BP 130/85; PULSE 77; RESP 18; TEMP 36.6; O2SAT 95
--- NOTE | 2025-05-02 11:23 | EXP.ANES.CKL ---
[facility] Disclaimer: The information contained in this section may have been updated after the patient was seen, as this information can be updated by other users. Medical History ESVIN on CPAP Contact dermatitis Allergic reaction Migraine headache Gastroesophageal reflux disease Allergic rhinitis Anxiety and depression Encounter for laboratory testing for COVID-19 virus Diarrhea Viral illness Surgical History History of gastric surgery H/O removal of cyst H/O sinus surgery Family History Grandmother Coronary artery disease Grandfather Coronary artery disease Father Coronary artery disease Other Family history of cancer Social History Smoking Status: Never smoker alcohol intake: never substance use type: denies use current occupational status: employed Travel in the last 8 weeks?: Inside the [place] Have you lived/traveled outside US in past 30 days?: No Contact w/someone who lives/traveled outside US past 30 days?: No Exposure to someone with infectious disease in past 14 days?: No Do you have a fever (greater than 100.4 F or 38 C)?: No Have you tested positive for COVID-19?: No Exposed to someone with COVID-19 in past 14 days?: No Do you have a sore throat?: No Do you have a cough?: No Do you have any weakness?: No Do you have any diarrhea?: No Are you experiencing any unusual bleeding?: No Do you have any muscle aches/pain?: No Do you have any abdominal pain?: No Are you experiencing loss of taste or smell?: No [facility] Anesthesia Checklist Patient Identification Patient Identification: Arm Band Structural Data Admitted From: Home Planned Operative Procedure/s: Colonoscopy Consent for Planned Operative Procedure(s) Verified: Yes Verified Documents: Surgical Consent and History and Physical NPO Status Verified Time NPO: 00:00 Additional verifications Anesthesia Reactions: No Hx Blood Transfusions: No Blood Transfusion Reaction: No Airway Assessment Mallampati Score:: Class II C-Spine Mobility Assessed: Yes TMJ Mobility Assessed: Yes Dentition: Good Dentition Neurological Assessment Level of Consciousness: Awake, Alert and Appropriate Anesthesia Plan Anesthesia Risk discussed: Yes Anesthesia Plan: Verified ASA Class: III Anesthesia Type: MAC
--- NOTE | 2025-05-02 11:28 | P.HP_ITS ---
HPI HPI HPI: Forwarded from outpatient visit dated April 19, 2025: The patient returns for evaluation regarding hemorrhoids with bleeding/pain. He has increased fluid intake, fiber supplementation, and his stool softener dose. He has noticed no significant changes. [facility] Disclaimer: The information contained in this section may have been updated after the patient was seen, as this information can be updated by other users. Medical History ESVIN on CPAP Contact dermatitis Allergic reaction Migraine headache Gastroesophageal reflux disease Allergic rhinitis Anxiety and depression Encounter for laboratory testing for COVID-19 virus Diarrhea Viral illness Surgical History History of gastric surgery H/O removal of cyst H/O sinus surgery Family History Grandmother Coronary artery disease Grandfather Coronary artery disease Father Coronary artery disease Other Family history of cancer Social History Smoking Status: Never smoker alcohol intake: never substance use type: denies use current occupational status: employed Travel in the last 8 weeks?: Inside the [place] Have you lived/traveled outside US in past 30 days?: No Contact w/someone who lives/traveled outside US past 30 days?: No Exposure to someone with infectious disease in past 14 days?: No Do you have a fever (greater than 100.4 F or 38 C)?: No Have you tested positive for COVID-19?: No Exposed to someone with COVID-19 in past 14 days?: No Do you have a sore throat?: No Do you have a cough?: No Do you have any weakness?: No Do you have any diarrhea?: No Are you experiencing any unusual bleeding?: No Do you have any muscle aches/pain?: No Do you have any abdominal pain?: No Are you experiencing loss of taste or smell?: No Other Medical History Have you received the Pneumonia Vaccine: No Review of Systems Review of Systems Review of systems:: pertinent systems reviewed and negative unless documented below *Gastrointestinal Gastrointestinal: Reports as per HPI Meds Home Medications and Allergies Home Medications ?Medication ?Instructions ?Recorded ?Confirmed ?Type diphenhydramine HCl 25 mg capsule 25 mg PO BID PRN all ergies 10/12/23 05/02/25 History (Benadryl) esomeprazole magnesium 20 mg 20 mg PO DAILY 10/12/23 0 05/02/25 History capsule,delayed release (Nexium) topiramate 25 mg tablet (Topamax) 25 mg PO NEEDED P RN Headache 10/12/23 05/02/25 History montelukast 10 mg tablet 10 mg PO DAILY 90 days #90 t abs 01/02/25 05/02/25 Rx buspirone 5 mg tablet See Rx Instructions .Route 0 02/27/25 05/02/25 Rx .COMPLEX #180 tabs escitalopram oxalate 10 mg tablet See Rx Instructions .Route 03/06/25 05/02/25 Rx .COMPLEX #90 tabs fluticasone propionate 50 2 spray intranasal BID 03/2805/02/25 History mcg/actuation nasal spray,suspension ipratropium bromide 42 mcg (0.06 2 spray intranasal TI D 03/28/25 05/02/25 History %) nasal spray levocetirizine 5 mg tablet (Xyzal) See Rx Instructions .Route .COMPLEX 05/02/25 05/02/25 History New Prescriptions to Start Prescriptions: Allergies Allergy/AdvReac Type Severity Reaction Status Date / Time shellfish Allergy Severe throat Uncoded 04/19/25 14:47 swelling Exam Data for Last 24 hours Vital signs and Labs for Last 24 Hours: Temp Pulse Resp BP Pulse Ox O2 Del Method 97.8 F 77 18 130/85 95 Room Air 05/02/25 11:07 05/02/25 11:07 05/02/25 11:07 05/02/25 11:07 05/02/25 11:07 05/02/25 11:07 I & O for Last 24 hours: Intake & Output 04/29/25 04/30/25 05/01/25 05/02/25 11:59 11:59 11:59 11:59 Weight 300 lb Constitutional Constitutional: no acute distress *Routine HEENT Exam Head: Present normocephalic Eye: Present EOMI ENT: Present mucous membranes moist *Routine Neck Exam Neck: Present full ROM *Routine Respiratory Exam Respiratory: Absent respiratory distress *Routine Cardiovascular Exam Cardiovascular: Absent tachycardia *Routine Abdominal Exam Abdominal: Present soft *Routine Rectal Exam Rectal:: deferred *Routine Genitalia Exam Genitalia:: deferred *Routine Extremities Exam Extremities: Present full ROM *Routine Skin Exam Skin: Absent erythema *Routine Neurological Exam Neurological: Present alert Assessment and Plan *Assessment and plan (1) Unspecified hemorrhoids: Status: Acute Qualifiers: Hemorrhoid type: unspecified Qualified Code(s): K64.9 - Unspecified h emorrhoids Category: Medical Code(s): K64.9 - Unspecified hemorrhoids Plan: Continue current medical therapy Colonoscopy today I have discussed the risks and benefits including, but not limited to: Bleeding Infection Damage to surrounding tissue Inherent risks of sedation The patient agrees to proceed.
[2025-05-02 12:24] VITALS: BP 119/67; PULSE 72; RESP 17; TEMP 36.4; O2SAT 93
--- NOTE | 2025-05-02 12:24 | HMH.SCOPE ---
Procedure: Date: 05/02/25 Patient Date of :: 1980 Procedure Performed:: Colonoscopy with polypectomy by means other than snare Indications:: Hemorrhoids Performing Provider:: Sandeep Corey MD Referring Provider:: . Sedation:: Monitored anesthesia care Procedure:: After informed consent was obtained the patient was taken to the endoscopy suite. Sedation ensued after the patient was transferred to the left lateral decubitus position. Pulse, blood pressure, and oxygen saturation were monitored throughout the procedure. Digital rectal exam revealed no significant abnormality. The colonoscope was placed in position. The entire colon was evaluated. The colonoscope was carefully removed and the patient was transferred to recovery in stable condition. Please see findings and specimens below for detail. Findings:: Bowel preparation fair Fairly significant spasticity/lack of relaxation Right posterior margin perianal punctum consistent with fistula tract opening Mild perianal vascular engorgement with inflammation Fairly mild hemorrhoidal cushions with no evidence of active bleeding Small polyp at 55 cm Specimens:: Polyp at 55 cm (cold biopsy forceps) Recommendations:: Timing of repeat colonoscopy is pending pathology will likely be around 3-5 years. May benefit from examination under anesthesia for better evaluation of likely right posterior fistula in ano, as well as, perianal vascular engorgement/inflammation. May ultimately benefit from additional hemorrhoid treatment; however, overall hemorrhoid burden relatively mild. Complications:: No immediate Estimated blood obtained (mL): 1 Colonoscopy Component Colonoscopy Component Was a colonoscopy performed during today's procedure?: Yes Recommended follow up colonoscopy of at least 10 years?: No If no, follow up colonoscopy recommended in ___ years?: (See above) Reason for not recommending >/= 10 yr follow-up interval?: (See above)
[2025-05-02 12:34] VITALS: BP 130/70; PULSE 69; RESP 17; TEMP 36.4; O2SAT 94
[2025-05-02 12:44] VITALS: BP 121/71; PULSE 65; RESP 18; TEMP 36.4; O2SAT 94
[2025-05-02 12:54] VITALS: BP 123/78; PULSE 65; RESP 18; TEMP 36.4; O2SAT 95
== END 2025-05-02 13:05 | disposition home or self-care (01) ==
PROVIDERS: PCP Family Medicine; Visit Provider Surgery
PROC: 0DJD8ZZ Inspection of Lower Intestinal Tract, Via Natural or Artificial Opening Endoscopic (ICD-10-PCS; CPT 45380; principal; 2025-05-02 09:30)
DX: D12.6 Benign neoplasm of colon, unspecified (principal); K64.8 Other hemorrhoids; F41.9 Anxiety disorder, unspecified; F32.A Depression, unspecified; K21.9 Gastro-esophageal reflux disease without esophagitis; G47.33 Obstructive sleep apnea (adult) (pediatric); Z91.013 Allergy to seafood; Z79.899 Other long term (current) drug therapy
CPT/HCPCS: 45380; J2003; J2704; J3010; J7120

== ENCOUNTER 2025-05-02 15:35 | Emergency (ER) | payer BC, SELFPAY ==
[2025-05-02 15:51] VITALS: BP 119/48; PULSE 72; RESP 15; TEMP 36.5; O2SAT 99; BMI 40.6
--- OUTSIDE RECORDS SUMMARY | 2025-05-02 16:00 | XMS_ITS | Clinical Summary ---
Author Organization [facility] Address [address] [place] [id number] Care Team Providers Care Hot Head Machine Operator Name Role Phone Markie Dietrich MD Primary Care Provider [phone] Allergies Active Allergy Reactions Criticality Noted Date Comments Shellfish-Derived Products Anaphylaxis High 09/29/19 25 Medications busPIRone (BUSPAR) 5 MG tablet Take 1 tablet by mouth Every 12 (Twelve) Hours. 09/03/2023 Active escitalopram (LEXAPRO) 10 MG tablet Take 1 tablet by mouth Daily. 09/29/2023 Active levocetirizine (XYZAL) 5 MG tablet Take 1 tablet by mouth Daily. 2023 Active montelukast (SINGULAIR) 10 MG tablet Take 1 tablet by mouth Daily. 07/26/2023 Active esomeprazole (nexIUM) 20 MG capsule Take 1 capsule by mouth Every Morning Before Breakfast. Active Active Problems Problem Noted Date Diagnosed Date ESVIN (obstructive sleep apnea) 10/01/2023 Assessment & Plan (09/29/2024 3:55 PM EST): Baseline AHI is 27. This is moderate sleep apnea. He is on CPAP therapy. Download reviewed with good compliance but noted noted AHI is mildly elevated at 11. Pull downloads from January 2024 through current August 2024 and his AHI has been average in 9-11 per 1 hour. Discussed with patient. He is not experiencing excessive daytime sleepiness. He denies any sleepiness when driving. He feels like the device is functioning. He feels like his mask is his good fit with very little air leak. Options discussed: Lateral sleep position and use a body pillow behind his back. Stay off his back Try a new mask style with DME both for skin and elevated AHI with a mild air leak. In lab sleep study for further evaluation. As patient does not have any excessive daytime sleepiness or sleepiness when driving he has declined this option at this time. Plan: Patient to download the [place] back to his phone and begin tracking his AHI Patient try lateral sleep position using a body pillow to stay on his side. Uses CPAP pillow. Stay off his back. May consider changing his mask style Prescription to DME of patient's choice for CPAP supplies Follow-up in 3 months for moderate ESVIN on CPAP therapy with a mildly elevated AHI. Sooner for any ESVIN or daytime sleepiness or sleepiness when driving complaints. Assessment & Plan (10/01/2023 10:03 AM EST): Baseline AHI is 27. This is moderate sleep apnea. He is on CPAP therapy. Download reviewed with good control and good compliance. He is benefiting from PAP therapy with plan to continue PAP therapy. Prescription for CPAP supplies to the DME of his choice. Plan follow-up in 1 year or sooner for any ESVIN or PAP concerns. Family History Relation Name Status Comments Father Mother Social History Tobacco Use Types Packs/Day Years Used Date Smoking Tobacco: Never Passive Smoke Exposure: Never Smokeless Tobacco: Never Tobacco Cessation:Counseling Given: Not Answered Alcohol Use Standard Drinks/Week Comments Yes 0 (1 standard drink = 0.6 oz pur e alcohol) Rarely Sex and Gender Information Value Date Recorded Sex Assigned at Not on file Legal Sex Male 11:54 AM EDT Gender Identity Not on file Sexual Orientation Not on file Last Filed Vital Signs Vital Sign Reading Time Taken Comments Blood Pressure 118/80 09/29/2024 9:26 AM EST Pulse 86 09/29/2024 9:26 AM EST Temperature - - Respiratory Rate - - Oxygen Saturation 98% 09/29/2024 9:26 AM EST Inhaled Oxygen Concentration - - Weight 137 kg (302 lb) 09/29/2024 9:26 AM EST Height 180.3 cm (5' 11 ) 09/29/2024 9:26 AM EST Body Mass Index 42.12 09/29/2024 9:26 AM EST Plan of Treatment Health Maintenance Due Date Last Done Comments ANNUAL PHYSICAL 09/17/2023 HEPATITIS C SCREENING 09/17/2023 COVID-19 Vaccine ( season) 2024 02/02/2024, 04/24/2022, 07/23/2021, Additional history exists COLOGUARD 2024 COLON CANCER SCREENING 5 YEAR SIGMOIDOSCOPY 2024 COLONOSCOPY 2024 [address]ER SCREENING [address] COLONOGRAPHY 2024 FECAL OCCULT BLOOD TEST 2024 FIT Testing (1 year) 2024 INFLUENZA VACCINE 05/31/2025 05/29/2023, 06/19/2022 TDAP/TD VACCINES (3 - Td or Tdap) 06/09/2034 06/09/2024, 04/15/2018 Pneumococcal Vaccine 0-49 Aged Out No longer eligible based on patient's age to complete this topic Insurance Care Teams Hot Head Machine Operator Relationship Specialty Start Date End Date Markie Dietrich MD [address] [place] [id number] PCP - General Family Medicine 09/24/23
--- NOTE | 2025-05-02 16:05 | CT_ITS ---
PROCEDURE INFORMATION: Exam: CT Head Without Contrast Exam date and time: 05/02/2025 4:36 PM Age: 44 years old Clinical indication: Pain; Headache; Additional info: COUGHLIN, nausea, vomiting TECHNIQUE: Imaging protocol: Computed tomography of the head without contrast. Radiation optimization: All CT scans at this facility use at least one of these dose optimization techniques: automated exposure control; mA and/or kV adjustment per patient size (includes targeted exams where dose is matched to clinical indication); or iterative reconstruction. COMPARISON: No relevant prior studies available. FINDINGS: Brain: Bands of hypodensity are identified involving the bilateral insula inferiorly, suggestive of artifact. The goldstein-white differentiation is otherwise preserved demonstrating no visualized acute territorial type infarct. No acute intracranial hemorrhage is visualized. No intracranial mass effect. There is no midline shift. There is mild prominence of cerebral sulci superiorly, compatible with atrophy. Artifact limits evaluation of the cassandra. Cerebral ventricles: No ventriculomegaly. Paranasal sinuses: Mucosal thickening visualized of the right maxillary sinus, with mucous retention cysts or polyps. There is mucosal thickening of the right sphenoid sinus. A mucous retention cyst or polyp is noted within the left sphenoid sinus. Mild mucosal thickening of the ethmoid sinuses, with a small mucous retention cyst or polyp on the right side. Postoperative changes are visualized status post bilateral antrostomies and ethmoidectomies. Mastoid air cells: No mastoid effusion. Orbital cavities: A mildly dysconjugate gaze is visualized. Bones: The calvarium demonstrates no evidence for a depressed fracture. Hypertrophic arthropathy is visualized at the atlanto-axial joint. Soft tissues: Unremarkable. IMPRESSION: 1. No visualized acute intracranial hemorrhage or acute territorial type infarct. 2. Mild atrophy. 3. Paranasal sinus disease. 4. Additional findings described above. 5. If further evaluation is clinically indicated, an MRI of the brain is recommended.
--- NOTE | 2025-05-02 16:05 | ED_ITS ---
<Statement entered by Vito Goddard MD - 05/02/25 18:54> I was consulted by the MARLIN, and we discussed the complexity of the problems being addressed. I approve the treatment and management plan for this patient's care in the emergency department, thus performing a substantive portion of the medical decision making. Vito Goddard MD Discharge Plan Disposition Patient Disposition: Home, Self-Care Condition: Good Prescriptions Prescriptions: No Action ipratropium bromide 42 mcg (0.06 %) spray,non-aerosol 2 spray intranasal TID Patient Comments: 2 SPRAY EACH NOSTRIL 3 TIMES A DAY fluticasone propionate 50 mcg/actuation spray,suspension 2 spray intranasal BID Patient Comments: SPRAY 2 SPRAYS INTO EACH NOSTRIL EVERY DAY diphenhydramine HCl [Benadryl] 25 mg capsule 25 mg PO BID PRN (Reason: allergies) topiramate [Topamax] 25 mg tablet 25 mg PO NEEDED PRN (Reason: Headache) esomeprazole magnesium [Nexium] 20 mg capsule,delayed release(DR/EC) 20 mg PO DAILY montelukast 10 mg tablet 10 mg PO DAILY 90 Days Qty: 90 0RF Patient Comments: TAKE 1 TABLET BY MOUTH EVERY DAY buspirone 5 mg tablet See Rx Instructions .ROUTE .COMPLEX Qty: 180 3RF Dose Instruction: TAKE 1 TABLET BY MOUTH TWICE A DAY Rx Instructions: TAKE 1 TABLET BY MOUTH TWICE A DAY escitalopram oxalate 10 mg tablet See Rx Instructions .ROUTE .COMPLEX Qty: 90 0RF Dose Instruction: TAKE 1 TABLET BY MOUTH EVERY DAY Rx Instructions: TAKE 1 TABLET BY MOUTH EVERY DAY levocetirizine [Xyzal] 5 mg tablet See Rx Instructions .ROUTE .COMPLEX Rx Instructions: TAKE 1 TABLET BY MOUTH EVERY DAY Referrals Follow up/Referrals: Markie Dietrich MD [Primary Care Provider, Internal Medicine] - See instructions Sandeep Corey MD [Staff Physician, General Surgery] - See instructions Activity Restrictions/Add. Instructions Additional Instructions/Restrictions: Please return to the emergency department with any worsening signs or symptoms, please take all your medication as prescribed. If you have any abdominal pain any worsening headache that does not get better with your normal medications or persistent nausea vomiting unable to tolerate any oral intake please return to the emergency department. Please follow-up with PCP and general surgeon in the upcoming days. Clinical Impressions Clinical Impression: Migraine, Nausea & vomiting Instructions Patient Instructions: DI for Nausea -- Adult, DI for Migraine Print Language Print Language: Cook Islander Discharge ED Provider: iVto Goddard Adult HPI <ANGELICA Mayo - Last Filed: 05/02/25 18:29> General Chief complaint: Nausea/Vomiting/Diarrhea Stated complaint: Vomiting,COUGHLIN,S/P colonoscopy Time Seen by Provider: 05/02/25 15:58 Mode of Arrival: Family Vehicle Source of Information: Patient, Spouse and Medical Record Description of Symptoms (Recalled from ER Triage Doc. by RN): Pt c/o persistant nausea with vomtiing 3 hr post colonoscopy with polyp removal. This was done at [facility] today by Dr Corey. Pt had mild nausea at post op d/c and kept a little longer but on the drive home has continued to vomiting and Dr Corey would like pt evaluated in ER. Pt has had a headache for a few days prior to colonoscopy. History of Present Illness HPI narrative: 44-year-old male presents the emergency department accompanied by his spouse for nausea and vomiting as well as headache 3 hours status post colonoscopy, patient's states that he had a headache that was present prior to colonoscopy, colonoscopy procedure note was reviewed as well as anesthesiologist note was reviewed, patient tolerated procedure well tolerate anesthesia well, no apparent complications, colonoscopy was for hemorrhoids/polyp, patient has had persistent nausea vomiting and poor p.o. intake since his procedure. Patient states his headache is worsening, endorses photophobia and phonophobia, denies any fever chills chest pain shortness of breath, denies any overt abdominal pain, denies any constipation diarrhea, no urinary type symptomatology, of note General Surgery team was contacted and recommended the patient come to the emergency department to be evaluated. Patient has past medical history consistent with obesity, ESVIN, migrainous type headaches, anxiety/depression, GERD, patient is non-smoker denies any alcohol or drug use. Initial triage vitals are unremarkable. Please note that above description of symptoms, in this electronic medical record under categorization of recalled from ER triage doctor by RN are reflective of an initial nursing assessment, however, is not reflective of my full history and physical exam that was personally taken and clarified. Consequentially, this preceding description of symptoms, which may include the patient's categorized chief complaint in the EMR, do not reflect my personal clinical impression, and the ultimate description of history of present illness and patient stated complaints should be deferred to this section of the note. Unless stated otherwise or congruent with this section of the note, additional signs, symptoms, or incongruence should be interpreted as inaccurate with my clinical impression. Onset (ago): hour(s) Related Data Home Medications ?Medication ?Instructions ?Recorded ?Confirmed diphenhydramine HCl 25 mg capsule 25 mg PO BID PRN all ergies 10/12/23 05/02/25 (Benadryl) esomeprazole magnesium 20 mg 20 mg PO DAILY 10/12/23 0 05/02/25 capsule,delayed release (Nexium) topiramate 25 mg tablet (Topamax) 25 mg PO NEEDED P RN Headache 10/12/23 05/02/25 fluticasone propionate 50 2 spray intranasal BID 03/2805/02/25 mcg/actuation nasal spray,suspension ipratropium bromide 42 mcg (0.06 2 spray intranasal TI D 03/28/25 05/02/25 %) nasal spray levocetirizine 5 mg tablet (Xyzal) See Rx Instructions .Route .COMPLEX 05/02/25 05/02/25 Previous Rx's ?Medication ?Instructions ?Recorded montelukast 10 mg tablet 10 mg PO DAILY 90 days #90 t abs 01/02/25 buspirone 5 mg tablet See Rx Instructions .Route 0 02/27/25 .COMPLEX #180 tabs escitalopram oxalate 10 mg tablet See Rx Instructions .Route 03/06/25 .COMPLEX #90 tabs Allergies Allergy/AdvReac Type Severity Reaction Status Date / Time shellfish Allergy Severe throat Uncoded 04/19/25 14:47 swelling [facility] <ANGELICA Mayo - Last Filed: 05/02/25 18:29> [facility] Disclaimer: The information contained in this section may have been updated after the patient was seen, as this information can be updated by other users. Medical History ESVIN on CPAP Contact dermatitis Allergic reaction Migraine headache Gastroesophageal reflux disease Allergic rhinitis Anxiety and depression Encounter for laboratory testing for COVID-19 virus Diarrhea Viral illness Surgical History History of gastric surgery H/O removal of cyst H/O sinus surgery Family History Grandmother Coronary artery disease Grandfather Coronary artery disease Father Coronary artery disease Other Family history of cancer Social History Smoking Status: Never smoker alcohol intake: never substance use type: denies use current occupational status: employed Travel in the last 8 weeks?: Inside the [place] Have you lived/traveled outside US in past 30 days?: No Contact w/someone who lives/traveled outside US past 30 days?: No Exposure to someone with infectious disease in past 14 days?: No Do you have a fever (greater than 100.4 F or 38 C)?: No Have you tested positive for COVID-19?: No Exposed to someone with COVID-19 in past 14 days?: No Do you have a sore throat?: No Do you have a cough?: No Do you have any weakness?: No Do you have any diarrhea?: No Are you experiencing any unusual bleeding?: No Do you have any muscle aches/pain?: No Do you have any abdominal pain?: No Are you experiencing loss of taste or smell?: No Other Medical History Have you received the Pneumonia Vaccine: No <ANGELICA Mayo - Last Filed: 05/02/25 18:29> ROS Obtained: Yes All systems reviewed & no additional complaints except as documented Physical Exam <ANGELICA Mayo - Last Filed: 05/02/25 18:29> General General appearance: alert and in no apparent distress Head Head exam: atraumatic and normocephalic Eye Eye exam: Present PERRL and EOMI ENT ENT exam: Present mucous membranes moist Neck Neck exam: Present normal inspection Chest Chest inspection: Present normal inspection and symmetric chest wall rise Respiratory Respiratory exam: Present normal lung sounds bilaterally; Absent respiratory distress Cardiovascular Cardiovascular exam: Present regular rate and normal rhythm Abdominal Exam Abdominal exam: Present soft; Absent tenderness Extremities Exam Extremities exam: Present normal inspection Neurological Exam Neurological exam: Present alert and oriented X3 Psychiatric Psychiatric exam: Present normal affect Skin Skin exam: Present warm and dry Medical Decision Making <ANGELICA Mayo - Last Filed: 05/02/25 18:29> Medical Records Medical records reviewed: Yes I reviewed the patient's medical records. Screening: Per USPSTF and CDC recommendations, given the prevalence of disease in our region, it is our hospital?s policy to screen for HIV and viral Hepatitis for all patients aged 18 and over and those with ongoing risk factors. Jones Inquiry Pt receiving controlled substance: No Jones was queried for this patient: No Vital Signs: 05/02/25 15:51 05/02/25 18:00 Temperature 97.7 F Temperature Source Oral Pulse Rate 70 Pulse Rate [Right] 72 Respiratory Rate 15 Blood Pressure 135/101 H Blood Pressure [Right Arm] 119/48 L Blood Pressure Mean [Right Arm] 71 Blood Pressure Source [Right Arm] Automatic Cuff 02 Sat by Pulse Oximetry 99 97 Oxygen Delivery Method Room Air Lab Data Lab results reviewed: Yes I reviewed the patient's lab results. Lab Results 05/02/25 16:11: WBC 7.8, RBC 4.77, Hgb 14.1, Hct 41.0 L, MCV 86.0, MCH 29.6, MCHC 34.4, RDW 12.4, Plt Count 169, MPV 11.8 H, Neut % (Auto) 85.1 H, Lymph % (Auto) 9.4 L, Moffat % (Auto) 4.5, Eos % (Auto) 0.1, Baso % (Auto) 0.5, Neut # (Auto) 6.6, Lymph # (Auto) 0.7, Moffat # (Auto) 0.4, Eos # (Auto) 0.0, Baso # (Auto) 0.0, Sodium 137, Potassium 4.3, Chloride 104, Carbon Dioxide 28, Anion Gap 9.3, BUN 15, Creatinine 0.80, Estimated Creat Clear 224, Estimated GFR 105, Est GFR ( Amer) 126, Glucose 144 H, Calcium 9.2, Magnesium 2.3, Total Bilirubin 0.7, AST 35, ALT 24, Alkaline Phosphatase 80, Total Protein 7.5, Albumin 4.5, Globulin 3.0, Albumin/Globulin Ratio 1.5, HIV Ag/Ab Combo Qual Negative 05/02/25 16:13: Urine Color Yellow, Urine Appearance Clear, Urine pH 8.0, Ur Specific [place] 1.015, Urine Protein Negative, Urine Glucose (UA) Negative, Urine Ketones 1+, Urine Blood Negative, Urine Nitrate Negative, Urine Bilirubin Negative, Urine Urobilinogen 0.2, Ur Leukocyte Esterase Negative, Urine RBC None, Urine WBC Occasional, Ur Squamous Epith Cells Occasional, Urine Bacteria Trace 05/02/25 16:11 05/02/25 16:11 Orders (Tests/Meds): ED MEDICATIONS Generic Name Dose Route Start Last Admin Trade Name Freq PRN Reason Stop Dose Admin Lactated Ringer's 1,000 mls @ 999 mls/hr 05/02/25 17:45 05/02/25 17:57 Lactated Ringer's 1000 Ml Bag IV 05/02/25 18:45 999 mls/hr .Q1H1M ONE Administration Discontinued Medications Generic Name Dose Route Start Last Admin Trade Name Freq PRN Reason Stop Dose Admin Dexamethasone Sodium Phosphate 10 mg 05/02/25 18:09 05/02/25 18:23 Dexamethasone 4mg/Ml 1ml Vial IV 05/02/25 18:10 10 mg ONCE ONE Administration Droperidol 1.25 mg 05/02/25 17:06 05/02/25 17:26 Droperidol 5mg/2ml Vial IV 05/02/25 17:07 1.25 mg ONCE ONE Administration Ketorolac Tromethamine 15 mg 05/02/25 18:09 05/02/25 18:23 Ketorolac 15mg/Ml Vial IV 05/02/25 18:10 15 mg ONCE ONE Administration ORDERS Category Date Time Status CT head/brain wo con Stat Cat Scan 05/02/25 16:05 Completed Complete Blood Count Auto Diff Stat Lab 05/02/25 16:11 Completed Comprehensive Metabolic Panel Stat Lab 05/02/25 16:11 Completed HIV Combo Stat Lab 05/02/25 16:11 Completed Hepatitis C Ab Qual. W/ RFX Stat Lab 05/02/25 16:11 Received Magnesium Stat Lab 05/02/25 16:11 Completed UA [Urinalysis and Microscopic] Stat Lab 05/02/25 16:13 Completed Medical Decision Narrative: 44-year-old male presents the emergency department with a headache nausea and vomiting, poor p.o. intake for several hours, status post colonoscopy, differential diagnose include but not limited to migraine without aura, migraine with aura, tension headache, cluster headache, adverse reaction to anesthesia. I discussed this patient's case with the attending physician Will obtain basic laboratory studies, magnesium level, UA, CT head without contrast will give 1 L LR IV. I was able to discuss this patient's case with Austen Moran CRNA over the phone at approximately 4:08 PM, he tells me he will retrieve the anesthesia record, he does state that the patient did complain of a headache prior to the procedure today, tolerated anesthesia well, woke up well, used propofol and 100 mcg of IV fentanyl prior to the procedure due to patient's headache, he will retrieve the record to determine how much propofol the patient was given around 11 AM this morning. After reviewing anesthesia record patient received approximately 100 mg of IV fentanyl for anesthesia. I was able to speak with the LIT Bajwa in person in the emergency department at approximately 4:20 PM, he presented me with the anesthesia record, states the patient tolerated procedure well, woke up well. That the likelihood the patient still having side effect of anesthesia is low as fentanyl and propofol have half-life would not be present in the patient's system at this time. CBC unremarkable Will give 1.25 mg IV droperidol for migrainous type headache with nausea and vomiting. CMP unremarkable. UA is notable for 1+ ketonuria, negative nitrites, negative leukocyte esterase. I reviewed the patient's CT head without contrast on the corresponding radiologic report, no visualized acute intracranial hemorrhage or acute territorial type infarction mild atrophy, paranasal sinus disease, additional findings described, if further evaluation is clinically indicated MRI of the brain is recommended. I discussed this patient's case with the on-call general surgeon and surgeon who performed the patient's colonoscopy this morning at approximately 5:40 PM, he is in agreement with the current treatment plan/discharge planning, discussed the patient's benign abdominal exam with him, less likely for colon perforation as patient has no signs of peritonitis, no pain palpation to his abdominal region, reexamination of the patient at approximately 5:45 PM, patient states his headache is improved, nausea vomiting have subsided after droperidol administration. Will attempt p.o. challenge. Patient passed p.o. challenge, patient states at around 6:08 PM, that his headache is somewhat returning, will give 10 mg IV dexamethasone for headache and headache prevention, as well as 15 mg IV Toradol for anti-inflammatory effect, now that CT head is negative. Patient was given strict ED return precautions. Patient voiced understanding and agreement with the current treatment plan/discharge plan. Patient follow-up with general surgery and other providers as directed. Patient was given strict ED return precautions. Patient and family voiced understanding and agreement with current treatment plan/discharge plan. Most likely migraine headache causing nausea and vomiting in the setting of recent anesthesia and colonoscopy. <Vito Goddard MD - Last Filed: 05/02/25 16:20> Vital Signs: 05/02/25 15:51 05/02/25 18:00 Temperature 97.7 F Temperature Source Oral Pulse Rate 70 Pulse Rate [Right] 72 Respiratory Rate 15 Blood Pressure 135/101 H Blood Pressure [Right Arm] 119/48 L Blood Pressure Mean [Right Arm] 71 Blood Pressure Source [Right Arm] Automatic Cuff 02 Sat by Pulse Oximetry 99 97 Oxygen Delivery Method Room Air Lab Data Lab Results 05/02/25 16:11: WBC 7.8, RBC 4.77, Hgb 14.1, Hct 41.0 L, MCV 86.0, MCH 29.6, MCHC 34.4, RDW 12.4, Plt Count 169, MPV 11.8 H, Neut % (Auto) 85.1 H, Lymph % (Auto) 9.4 L, Moffat % (Auto) 4.5, Eos % (Auto) 0.1, Baso % (Auto) 0.5, Neut # (Auto) 6.6, Lymph # (Auto) 0.7, Moffat # (Auto) 0.4, Eos # (Auto) 0.0, Baso # (Auto) 0.0, Sodium 137, Potassium 4.3, Chloride 104, Carbon Dioxide 28, Anion Gap 9.3, BUN 15, Creatinine 0.80, Estimated Creat Clear 224, Estimated GFR 105, Est GFR ( Amer) 126, Glucose 144 H, Calcium 9.2, Magnesium 2.3, Total Bilirubin 0.7, AST 35, ALT 24, Alkaline Phosphatase 80, Total Protein 7.5, Albumin 4.5, Globulin 3.0, Albumin/Globulin Ratio 1.5, HIV Ag/Ab Combo Qual Negative 05/02/25 16:13: Urine Color Yellow, Urine Appearance Clear, Urine pH 8.0, Ur Specific [place] 1.015, Urine Protein Negative, Urine Glucose (UA) Negative, Urine Ketones 1+, Urine Blood Negative, Urine Nitrate Negative, Urine Bilirubin Negative, Urine Urobilinogen 0.2, Ur Leukocyte Esterase Negative, Urine RBC None, Urine WBC Occasional, Ur Squamous Epith Cells Occasional, Urine Bacteria Trace Orders (Tests/Meds): ED MEDICATIONS Generic Name Dose Route Start Last Admin Trade Name Freq PRN Reason Stop Dose Admin Lactated Ringer's 1,000 mls @ 999 mls/hr 05/02/25 17:45 05/02/25 17:57 Lactated Ringer's 1000 Ml Bag IV 05/02/25 18:45 999 mls/hr .Q1H1M ONE Administration Discontinued Medications Generic Name Dose Route Start Last Admin Trade Name Freq PRN Reason Stop Dose Admin Dexamethasone Sodium Phosphate 10 mg 05/02/25 18:09 05/02/25 18:23 Dexamethasone 4mg/Ml 1ml Vial IV 05/02/25 18:10 10 mg ONCE ONE Administration Droperidol 1.25 mg 05/02/25 17:06 05/02/25 17:26 Droperidol 5mg/2ml Vial IV 05/02/25 17:07 1.25 mg ONCE ONE Administration Ketorolac Tromethamine 15 mg 05/02/25 18:09 05/02/25 18:23 Ketorolac 15mg/Ml Vial IV 05/02/25 18:10 15 mg ONCE ONE Administration ORDERS Category Date Time Status CT head/brain wo con Stat Cat Scan 05/02/25 16:05 Completed Complete Blood Count Auto Diff Stat Lab 05/02/25 16:11 Completed Comprehensive Metabolic Panel Stat Lab 05/02/25 16:11 Completed HIV Combo Stat Lab 05/02/25 16:11 Completed Hepatitis C Ab Qual. W/ RFX Stat Lab 05/02/25 16:11 Received Magnesium Stat Lab 05/02/25 16:11 Completed UA [Urinalysis and Microscopic] Stat Lab 05/02/25 16:13 Completed ECG Data Tracing #1: I reviewed this ECG and interpreted as documented below: Normal sinus rhythm. No ST elevation or depression. QTc normal at 459 Critical Care <ANGELICA Mayo - Last Filed: 05/02/25 18:29> Critical Care Time Critical Care Time: No
--- NOTE | 2025-05-02 16:17 | ECG_ITS ---
APPROVED REPORT Exam: Resting ECG HR:66 bpm ECG Measurements Heart Rate 66 AXES AL 170 P 63 QRSd 114 QRS 14 QT 445 T 12 QTc 459 Conclusion SINUS RHYTHM MODERATE INTRAVENTRICULAR CONDUCTION DELAY [110+ ms QRS DURATION] BORDERLINE ECG UNCONFIRMED REPORT Normal sinus rhythm. No ST elevation or depression. QTc 459 Electronically signed by : TWAN CHANEL, 05/03/2025 00:10:34
[2025-05-02 16:22] LABS: Hematocrit 41.0 % (42.0-52.0); Hemoglobin 14.1 g/dL (14.1-18.0); Immature Granulocytes % 0.4 %; Mean Corpuscular HGB Conc 34.4 g/dL (31.8-35.4); Mean Corpuscular Hemoglobin 29.6 pg (27.0-31.2); Mean Corpuscular Volume 86.0 fl (80-94); Nucleated Red Blood Cells % 0 %; Platelet Count 169 K/mm3 (142-424); Red Blood Count 4.77 M/mm3 (4.60-6.20); Red Cell Distribution Width-SD 39.0 fL; White Blood Count 7.8 K/mm3 (4.8-10.8)
[2025-05-02 16:27] LABS: Microscopic, Urine URINE MICROSCOPIC (MICROSCOPIC)
--- NOTE | 2025-05-02 16:33 | PC.NURSE ---
Patient to radiology
--- NOTE | 2025-05-02 16:36 | PC.NURSE ---
Patient back from radiology
[2025-05-02 16:42] LABS: Bilirubin,Urine Negative (Negative); Color,Urine YELLOW (Yellow); Glucose,Urine (UA) Negative (Negative); Ketones,Urine 1+ (Negative); Leukocyte Esterase,Urine Negative (Negative); PH,Urine 8.0 (5.0-8.5); Protein,Urine Negative (Negative); Specific Gravity, Urine 1.015 (1.005-1.030); Urobilinogen,Urine 0.2 EU/dl (0.2)
[2025-05-02 16:52] LABS: Albumin Level 4.5 g/dl (3.5-5.0); Chloride 104 mmol/L (98-107); Potassium 4.3 mmoL/L (3.5-5.1); Sodium 137 mmol/L (136-145)
[2025-05-02 16:54] LABS: Blood Urea Nitrogen 15 mg/dl (9-20); Creatinine Clearance Estimated 224 mL/min (50-200); Creatinine,Serum 0.80 mg/dl (0.66-1.25); Estimated Glomerular Filt Rate 105 ml/min (>60); GFR (African American) 126 ML/MIN (>60)
[2025-05-02 16:55] LABS: Alanine Aminotransferase 24 U/L (12-78); Albumin/Globulin Ratio 1.5 (1.1-1.8); Alkaline Phosphatase 80 U/L (38-126); Anion Gap 9.3 mEq/L (5-15); Aspartate Amino Transferase 35 U/L (17-59); Bilirubin,Total 0.7 mg/dl (0.2-1.3); Calcium 9.2 mg/dl (8.4-10.2); Carbon Dioxide 28 mmol/L (22.0-30.0); Globulin 3.0 g/dL (1.3-3.2); Glucose 144 mg/dl (74-100); Magnesium 2.3 mg/dl (1.6-2.3); Total Protein,Serum 7.5 g/dl (6.3-8.2)
[2025-05-02] MEDS: droPERidol 5MG/2ML VIAL 1.25 MG IV (17:26)
[2025-05-02 17:54] LABS: Bacteria,Urine Trace /lpf; Squamous Epithelial Cell,Urine Occasional #/hpf (0-5); WBC,Urine Occasional #/hpf (0-3)
[2025-05-02] MEDS: LACTATED RINGERS 1000ML 1,000 ML 999 ML IV (17:57)
[2025-05-02 18:00] VITALS: BP 135/101; PULSE 70; O2SAT 97
[2025-05-02] MEDS: DEXAMETHASONE 4MG/ML 1ML VIAL 10 MG IV (18:23)
[2025-05-02] MEDS: KETOROLAC 15MG/ML VIAL 15 MG IV (18:23)
[2025-05-02 18:37] LABS: Hepatitis C Ab Qual. W/ RFX NEGATIVE (Negative)
[2025-05-02 18:46] VITALS: BP 135/99; PULSE 68; RESP 16; TEMP 36.9; O2SAT 96
== END 2025-05-02 18:48 | disposition home or self-care (01) ==
PROVIDERS: Physician Assistant; Emergency Provider Student in an Organized Health Care Education/Training Program; PCP Family Medicine
DX: G43.909 Migraine, unspecified, not intractable, without status migrainosus (principal); R11.2 Nausea with vomiting, unspecified; F41.9 Anxiety disorder, unspecified
CPT/HCPCS: 70450; 80053; 81001; 83735; 85025; 86803; 87389; 93005; 96361; 96374; 96375; 99285; J1100; J1790; J1885; J7120